=== PATIENT | female | born 1940 | race Caucasian/White ===

== ENCOUNTER → 2019-07-29 | Outpatient (CLI) | payer MEDICARE ==
[~2019-07-29] MED LIST: ALBU90OI61 INH; ATEN25 PO; GABA100 PO; Ipratropium Bro30 ML; LEVSOD100 PO; LOVA40; PANT40 PO; RANI150 PO; TIOT18 INH
[2019-08-01 14:27] LABS: Stool Occult Bld Immuno 1 Positive (NEGATIVE)
== END | disposition home or self-care (01) ==
LOC: OLS 22:30 → LAB SHORT 22:30 → LAB FUT 07-27 08:00
PROVIDERS: Internal Medicine Gastroenterology
DX: D64.9 Anemia, unspecified (principal)
CPT/HCPCS: 82274

== ENCOUNTER → 2019-07-31 | Outpatient (CLI) | payer MEDICARE ==
[2019-08-01 14:27] LABS: Stool Occult Bld Immuno 1 Negative (NEGATIVE)
== END | disposition home or self-care (01) ==
LOC: OLS 16:04 → LAB SHORT 16:04
PROVIDERS: Internal Medicine Gastroenterology
DX: D64.9 Anemia, unspecified (principal)
CPT/HCPCS: 82274

== ENCOUNTER 2019-08-05 13:12 | Day surgery (SDC) | payer MEDICARE ==
[~2019-08-05] VITALS: Ht 154.9 cm; Wt 100.2 kg
== END 2019-08-05 15:09 | disposition home or self-care (01) ==
LOC: ORSCSDS 13:12
PROVIDERS: Internal Medicine Gastroenterology
PROC: 0DB58ZX Excision of Esophagus, Via Natural or Artificial Opening Endoscopic, Diagnostic (ICD-10-PCS; principal; 2019-08-05 14:30)
PROC: 0DB68ZX Excision of Stomach, Via Natural or Artificial Opening Endoscopic, Diagnostic (ICD-10-PCS; principal; 2019-08-05 14:30)
PROC: 0DB98ZX Excision of Duodenum, Via Natural or Artificial Opening Endoscopic, Diagnostic (ICD-10-PCS; principal; 2019-08-05 14:30)
PROC: 0D758ZZ Dilation of Esophagus, Via Natural or Artificial Opening Endoscopic (ICD-10-PCS; principal; 2019-08-05 14:30)
DX: D64.9 Anemia, unspecified (principal); R13.12 Dysphagia, oropharyngeal phase; K22.2 Esophageal obstruction; G47.33 Obstructive sleep apnea (adult) (pediatric); Z80.0 Family history of malignant neoplasm of digestive organs; I10 Essential (primary) hypertension; E03.9 Hypothyroidism, unspecified; E66.01 Morbid (severe) obesity due to excess calories; Z68.41 Body mass index [BMI] 40.0-44.9, adult; Z79.899 Other long term (current) drug therapy; Z87.891 Personal history of nicotine dependence; K44.9 Diaphragmatic hernia without obstruction or gangrene
CPT/HCPCS: 87081; 88305; 88342; J2704; J7120

== ENCOUNTER → 2020-06-09 | Outpatient (CLI) | payer MEDICARE ==
[2020-06-10 09:31] LABS: Stool Occult Bld Immuno 1 Negative (NEGATIVE); Stool Occult Bld Immuno 2 Positive (NEGATIVE)
== END | disposition home or self-care (01) ==
LOC: LAB 02:30 → LAB SHORT 02:30
PROVIDERS: Internal Medicine Gastroenterology
DX: D64.9 Anemia, unspecified (principal)
CPT/HCPCS: 82274

== ENCOUNTER → 2022-09-06 | Outpatient (CLI) | payer OTHER ==
[~2022-09-06] MED LIST changes: +AURYXIA210 MG PO; +EUTHYROX150 MC1 PO; +FURO20 PO; +MELO7.5 PO; +Prinivil10 MG PO; +TRAZ50 PO
[2022-09-07 11:08] LABS: BASOPHILS ABSOLUTE AUTO 0.02 K/mm3 (0.00-0.23); BASOPHILS PERCENT AUTO 0 % (0-2); EOSINOPHILS ABSOLUTE AUTO 0.13 K/mm3 (0.00-0.68); EOSINOPHILS PERCENT AUTO 3 % (0-6); Hematocrit 28.4 % (33.0-51.0); IMMATURE GRAN ABSOLUTE AUTO 0.01 K/mm3 (0.00-0.10); IMMATURE GRAN PERCENT AUTO 0 % (0-1); LYMPHOCYTES ABSOLUTE AUTO 0.57 K/mm3 (0.84-5.20); LYMPHOCYTES PERCENT AUTO 13 % (21-46); MONOCYTES ABSOLUTE AUTO 0.56 K/mm3 (0.16-1.47); MONOCYTES PERCENT AUTO 12 % (4-13); Mean Corpuscular HGB 21.4 pg (26.0-34.0); Mean Corpuscular HGB Conc 28.2 g/dL (31.5-36.5); Mean Corpuscular Volume 76 fL (80-100); NEUTROPHILS ABSOLUTE AUTO 3.21 K/mm3 (1.96-9.15); NEUTROPHILS PERCENT AUTO 71 % (41-73); Platelet Count 153 K/mm3 (150-400); RDW Coefficient Variation 19.8 % (11.7-14.2); RDW Standard Deviation 53.2 fL (35.1-46.3); Red Blood Cell Count 3.73 M/mm3 (3.80-5.20)
[2022-09-07 11:12] LABS: Mean Platelet Volume 11.7 fL (9.1-12.4)
[2022-09-07 12:05] LABS: Albumin, Blood 3.5 g/dL (3.4-5.0); Albumin/Globulin Ratio 0.9 (0.8-1.8); Bilirubin, Total 0.9 mg/dL (0.1-1.0); Bun/Creatinine Ratio 9.7 (12.0-20.0); Calcium, Blood 8.5 mg/dL (8.5-10.1); Creatinine, Blood 0.93 mg/dL (0.40-1.00); Globulin, Blood 3.8 g/dL (2.2-4.0); Potassium, Blood 4.1 mmol/L (3.5-5.5); Total Protein, Blood 7.3 g/dL (6.4-8.2)
== END ==
LOC: LAB SHORT 17:45 → LAB 17:45
PROVIDERS: Physician Assistant
DX: R06.2 Wheezing (principal)
CPT/HCPCS: 80053; 83880; 85025

== ENCOUNTER 2022-09-07 14:15 | Emergency (ER) | payer OTHER ==
[~2022-09-07] VITALS: Ht 152.4 cm; Wt 89.8 kg
[~2022-09-07 14:15] MED LIST changes: -AURYXIA210 MG PO; -EUTHYROX150 MC1 PO; -FURO20 PO; -Prinivil10 MG PO; -TRAZ50 PO
[2022-09-07 14:51] LABS: BASOPHILS ABSOLUTE AUTO 0.01 K/mm3 (0.00-0.23); BASOPHILS PERCENT AUTO 0 % (0-2); EOSINOPHILS ABSOLUTE AUTO 0.15 K/mm3 (0.00-0.68); EOSINOPHILS PERCENT AUTO 5 % (0-6); Hematocrit 27.8 % (33.0-51.0); IMMATURE GRAN PERCENT AUTO 0 % (0-1); LYMPHOCYTES ABSOLUTE AUTO 0.81 K/mm3 (0.84-5.20); LYMPHOCYTES PERCENT AUTO 25 % (21-46); MONOCYTES ABSOLUTE AUTO 0.38 K/mm3 (0.16-1.47); MONOCYTES PERCENT AUTO 12 % (4-13); Mean Corpuscular HGB 21.4 pg (26.0-34.0); Mean Corpuscular HGB Conc 28.8 g/dL (31.5-36.5); Mean Corpuscular Volume 75 fL (80-100); NEUTROPHILS PERCENT AUTO 59 % (41-73); Platelet Count 135 K/mm3 (150-400); RDW Standard Deviation 53.2 fL (35.1-46.3); Red Blood Cell Count 3.73 M/mm3 (3.80-5.20); White Blood Cell Count 3.25 K/mm3 (4.00-11.30)
[2022-09-07 15:02] LABS: Albumin, Blood 3.5 g/dL (3.4-5.0); Albumin/Globulin Ratio 0.9 (0.8-1.8); Bilirubin, Total 0.7 mg/dL (0.1-1.0); Bun/Creatinine Ratio 11.5 (12.0-20.0); Calcium, Blood 8.6 mg/dL (8.5-10.1); Creatinine, Blood 0.96 mg/dL (0.40-1.00); Globulin, Blood 3.7 g/dL (2.2-4.0); Potassium, Blood 3.7 mmol/L (3.5-5.5); Total Protein, Blood 7.2 g/dL (6.4-8.2)
[2022-09-07] MEDS ORDERED: EUTHYROX150 MC1 PO (15:48)
[2022-09-07] MEDS ORDERED: TRAZ50 PO (15:49)
[2022-09-07] MEDS ORDERED: Prinivil10 MG PO (16:32)
[2022-09-07] MEDS ORDERED: FURO20 PO (16:32)
[2022-09-07 16:42] VITALS: BP 158/63
[2022-09-07 16:43] LABS: Percent Saturation 4.7 % (15.0-50.0)
[2022-09-08] MEDS ORDERED: AURYXIA210 MG PO ×2
== END 2022-09-07 16:44 | disposition home or self-care (01) ==
LOC: ER 14:15
PROVIDERS: Emergency Medicine; Student in an Organized Health Care Education/Training Program
DX: I50.9 Heart failure, unspecified (principal); D50.9 Iron deficiency anemia, unspecified; J44.9 Chronic obstructive pulmonary disease, unspecified; Z88.5 Allergy status to narcotic agent; Z79.890 Hormone replacement therapy; Z79.899 Other long term (current) drug therapy; Z87.891 Personal history of nicotine dependence
CPT/HCPCS: 71046; 80053; 82728; 83540; 83550; 83880; 84484; 85025; 93005; 93010; 96374; 99284-25; A9270; J1940

== ENCOUNTER → 2023-08-23 | Outpatient (CLI) | payer MEDICARE ==
[~2023-08-23] MED LIST changes: +AURYXIA210 MG PO; +EUTHYROX150 MC1 PO; +FURO20 PO; +Prinivil10 MG PO; +TRAZ50 PO
[2023-08-23 19:42] LABS: BASOPHILS ABSOLUTE AUTO 0.02 K/mm3 (0.00-0.23); BASOPHILS PERCENT AUTO 0 % (0-2); EOSINOPHILS PERCENT AUTO 2 % (0-6); Hematocrit 41.4 % (33.0-51.0); Hemoglobin 13.9 g/dL (11.5-16.0); IMMATURE GRAN PERCENT AUTO 0 % (0-1); LYMPHOCYTES ABSOLUTE AUTO 0.91 K/mm3 (0.84-5.20); LYMPHOCYTES PERCENT AUTO 18 % (21-46); MONOCYTES ABSOLUTE AUTO 0.67 K/mm3 (0.16-1.47); MONOCYTES PERCENT AUTO 13 % (4-13); Mean Corpuscular HGB Conc 33.6 g/dL (31.5-36.5); Mean Corpuscular Volume 101 fL (80-100); Mean Platelet Volume 11.3 fL (9.1-12.4); NEUTROPHILS ABSOLUTE AUTO 3.47 K/mm3 (1.96-9.15); NEUTROPHILS PERCENT AUTO 67 % (41-73); Platelet Count 160 K/mm3 (150-400); RDW Coefficient Variation 13.5 % (11.7-14.2); RDW Standard Deviation 50.7 fL (35.1-46.3); Red Blood Cell Count 4.09 M/mm3 (3.80-5.20); White Blood Cell Count 5.17 K/mm3 (4.00-11.30)
[2023-08-23 19:49] LABS: Albumin, Blood 3.6 g/dL (3.4-5.0); Albumin/Globulin Ratio 0.9 (0.8-1.8); Bilirubin, Total 0.5 mg/dL (0.1-1.0); Bun/Creatinine Ratio 17.5 (12.0-20.0); Calcium, Blood 9.2 mg/dL (8.5-10.1); Creatinine, Blood 0.92 mg/dL (0.40-1.00); Globulin, Blood 4.2 g/dL (2.2-4.0); Potassium, Blood 4.1 mmol/L (3.5-5.5); Total Protein, Blood 7.8 g/dL (6.4-8.2)
== END | disposition home or self-care (01) ==
LOC: LAB 18:22 → LAB SHORT 18:22
PROVIDERS: Family Medicine
DX: I50.42 Chronic combined systolic (congestive) and diastolic (congestive) heart failure (principal); D64.9 Anemia, unspecified
CPT/HCPCS: 80053; 83880; 85025

== ENCOUNTER → 2024-05-25 | Outpatient (CLI) | payer MEDICARE ==
[2024-05-25 19:41] LABS: Albumin, Blood 3.9 g/dL (3.4-5.0); Bilirubin, Total 0.7 mg/dL (0.1-1.0); Bun/Creatinine Ratio 21.6 (12.0-20.0); Calcium, Blood 9.5 mg/dL (8.5-10.1); Creatinine, Blood 1.34 mg/dL (0.40-1.00); Globulin, Blood 3.9 g/dL (2.2-4.0); Magnesium, Blood 1.9 mg/dL (1.6-2.4); Potassium, Blood 4.9 mmol/L (3.5-5.5); Total Protein, Blood 7.8 g/dL (6.4-8.2)
== END ==
LOC: LAB SHORT 17:25 → LAB 17:25
PROVIDERS: Family Medicine
DX: I50.42 Chronic combined systolic (congestive) and diastolic (congestive) heart failure (principal); Z79.899 Other long term (current) drug therapy
CPT/HCPCS: 80053; 83735

== ENCOUNTER 2024-06-10 00:09 | Inpatient (IN) | payer MEDICARE ==
[2024-06-10] VITALS (16 sets, daily range): BP systolic 98–140; BP diastolic 40–85
[~2024-06-10] VITALS: Ht 154.9 cm; Wt 86.6 kg
[2024-06-10] MEDS ORDERED: FentaNYL Citrate 50 MCG/ML 2 ML Injection IV PRN ×4 (00:20→14:15)
[2024-06-10 01:28] LABS: BASOPHILS ABSOLUTE AUTO 0.03 K/mm3 (0.00-0.23); BASOPHILS PERCENT AUTO 0 % (0-2); EOSINOPHILS ABSOLUTE AUTO 0.05 K/mm3 (0.00-0.68); EOSINOPHILS PERCENT AUTO 1 % (0-6); Hematocrit 38.9 % (33.0-51.0); Hemoglobin 13.2 g/dL (11.5-16.0); IMMATURE GRAN ABSOLUTE AUTO 0.03 K/mm3 (0.00-0.10); IMMATURE GRAN PERCENT AUTO 0 % (0-1); LYMPHOCYTES ABSOLUTE AUTO 1.19 K/mm3 (0.84-5.20); LYMPHOCYTES PERCENT AUTO 12 % (21-46); MONOCYTES ABSOLUTE AUTO 0.83 K/mm3 (0.16-1.47); MONOCYTES PERCENT AUTO 8 % (4-13); Mean Corpuscular HGB 34.1 pg (26.0-34.0); Mean Corpuscular HGB Conc 33.9 g/dL (31.5-36.5); Mean Corpuscular Volume 101 fL (80-100); Mean Platelet Volume 10.5 fL (9.1-12.4); NEUTROPHILS ABSOLUTE AUTO 7.89 K/mm3 (1.96-9.15); NEUTROPHILS PERCENT AUTO 79 % (41-73); NRBC ABSOLUTE 0.02 K/mm3 (0.00-0.02); NRBC Auto 0.2 /100 WBC (0.0-0.2); Platelet Count 153 K/mm3 (150-400); RDW Coefficient Variation 13.3 % (11.7-14.2); RDW Standard Deviation 49.4 fL (35.1-46.3); Red Blood Cell Count 3.87 M/mm3 (3.80-5.20); White Blood Cell Count 10.02 K/mm3 (4.00-11.30)
[2024-06-10 01:36] LABS: International Normalized Ratio 1.02; Prothrombin Time Results 10.9 Sec (9.7-11.5)
[2024-06-10 01:37] LABS: Albumin, Blood 3.5 g/dL (3.4-5.0); Albumin/Globulin Ratio 0.9 (0.8-1.8); Bilirubin, Total 0.4 mg/dL (0.1-1.0); Bun/Creatinine Ratio 21.4 (12.0-20.0); Calcium, Blood 8.3 mg/dL (8.5-10.1); Creatinine, Blood 1.87 mg/dL (0.40-1.00); Globulin, Blood 3.7 g/dL (2.2-4.0); Potassium, Blood 4.1 mmol/L (3.5-5.5); Total Protein, Blood 7.2 g/dL (6.4-8.2)
[2024-06-10] MEDS ORDERED: NS 1,000 ML IV SCH (02:05)
[2024-06-10] MEDS ORDERED: Ondansetron HCl 2 MG / ML 2ML Vial IV PRN ×2 (02:30→14:10)
[2024-06-10] MEDS ORDERED: Naloxone HCl 0.4MG / ML 1ML Vial IV PRN (02:30)
[2024-06-10] MEDS ORDERED: Acetaminophen 325 MG TABLET PO PRN (02:35)
[2024-06-10] MEDS ORDERED: Lactated Ringer's 1,000 ML IV SCH ×3 (03:00→14:05)
--- NOTE | 2024-06-10 07:50 | NUR ---
SHIFT SUMMARY PT HAS BEEN RESTING IN BED OVERNIGHT. PT AOX4, CALM AND COOPERATIVE. C/O EXTREME L HIP PAIN D/T HIP FX. PT ALSO C/O EXTREME NEED TO URINATE. PT WAS BLADDER SCANNED AND STRAIGHT CATHED, WHICH LED TO RELIEF. OTHERWISE, PT HAD NO COMPLAINTS. NO ACUTE EVENTS OVERNIGHT. AWAITING ORTHOPEDIC SX CONSULT.
[2024-06-10] MEDS ORDERED: Docusate Sodium 100 MG Cap PO SCH (09:00)
[2024-06-10] MEDS ORDERED: Atenolol 25 MG Tab PO SCH (09:00)
[2024-06-10] MEDS ORDERED: LORazepam 2 MG/ML 1ML Injection IV PRN (09:15)
[2024-06-10] MEDS ORDERED: ChlordiazePOXIDE 25 MG Cap PO PRN (09:15)
[2024-06-10] MEDS ORDERED: Thiamine HCl 100 MG in NS 50 ML IV SCH (09:30)
[2024-06-10] MEDS ORDERED: Folic Acid 1 MG in NS 50 ML IV SCH (09:30)
--- NOTE | 2024-06-10 09:51 | NUR ---
RECIEVED A CALL FROM DAY SURGERY- PLAN IS FOR PT TO GO FOR A GAMMA HIP TODAY. HOWEVER THE PT EKG IN THE ED SHOWS A FLUTTER. PT HAS NO HISTORY OF THS IRREGULAR HEART RYTHM. SPOKE TO DR TEMPLE AND RECIEVED AN ORDER FOR TELE.
[2024-06-10] MEDS ORDERED: Miconazole Nitrate 2% 85 GM PWD TOP SCH (11:45)
[2024-06-10] MEDS ORDERED: Bupivacaine 0.5% HCl 5 MG/ML 30MLVIAL ONE ×2 (13:42→14:37)
--- NOTE | 2024-06-10 13:45 | NUR ---
TO DAY SURGERY VIA BED
[2024-06-10] MEDS ORDERED: CeFAZolin Sodium 2,000 MG in NS 100 ML IV SCH ×2 (13:50→23:00)
[2024-06-10] MEDS ORDERED: Tranexamic Acid 100 ML IV SCH ×2 (13:50→17:20)
--- NOTE | 2024-06-10 13:59 | NUR ---
PT HAS 20G IV TO LEFT AC THAT FLUSHES WELL AND FLOWS TO GRAVITY.
[2024-06-10] MEDS ORDERED: Lidocaine HCl 1% 5 ML SYR INJ ONE (14:05)
[2024-06-10] MEDS ORDERED: HydrALAZINE HCl 20 MG / ML 1ML Vial IV PRN (14:10)
[2024-06-10] MEDS ORDERED: Albuterol 2.5 MG/3 ML VIAL INH PRN (14:10)
[2024-06-10] MEDS ORDERED: propofoL 150 ML IV ONE (14:55)
[2024-06-10] MEDS ORDERED: propofoL 20 ML IV ONE (14:58)
[2024-06-10] MEDS ORDERED: Albuterol 2.5 MG/3 ML VIAL INH ONE (15:00)
--- NOTE | 2024-06-10 15:18 | NUR ---
PT GLASSES TAKEN TO PACU FOR SAFEKEEPING. OTHER BELONGINGS LEFT IN PERSONAL ROOM ON MEDICAL FLOOR.
[2024-06-10] MEDS ORDERED: Ondansetron HCl 2 MG / ML 2ML Vial ONE (15:27)
[2024-06-10] MEDS ORDERED: Vasopressin 20 UNITS/ML 1ML Vial ONE (15:43)
[2024-06-10] MEDS ORDERED: ePHEDrine Sulfate 50 MG/ML 1ML Injection ONE (16:05)
[2024-06-10] MEDS ORDERED: Phenylephrine HCl 100 MCG/ML-NS 10MLSYR (1MG/10ML) ONE ×2 (16:18)
--- NOTE | 2024-06-10 17:55 | NUR ---
Pt to room 212 post op left hip nailing,A&0 x3, lung sounds clear, vss wnl, left hip aquacel dressings x2 CD&I, denies pain or nausea. call light within reach, denies needs at this time.
[2024-06-10] MEDS ORDERED: OxyCODONE HCL 5 MG TAB PO PRN (19:30)
--- NOTE | 2024-06-10 19:57 | NUR ---
CALL TO HOSPITALIST. PT HAS ALLERY TO OXYCODONE LISTED IN HX. PT HAS ORDERS FOR OXYCODONE FOR PAIN. VERIFIED WITH PT THAT ALLERGY IS ITCHING ONLY WITH OXY. NEW ORDERS RECEIVED FROM HOSPITALIST BENADRYL 25MG PO Q6 PRN.
[2024-06-10] MEDS ORDERED: DiphenhydrAMINE HCL 25 MG Cap PO PRN (20:05)
[2024-06-10] MEDS ORDERED: CeFAZolin Sodium 2,000 MG VIAL ONE (22:36)
--- NOTE | 2024-06-11 01:40 | NUR ---
TRANSFER OF PRIMARY NURSING CARE. REPORT GIVEN TO SIMON Mota RN. PT A/O X4 YET FORGETFUL AT TIMES. PT ABLE TO STAND PIVOT TO BSC FOR VOID. 2 PERSON WITH GB AND FWW. ATTENDS IN PLACE D/T INTERMITTENT BASELINE INCONTINENCE. AQUACEL X2 ON LEFT HIP C/D/I. PT VERBALIZES SIGNIFICANT PAIN, MEDICATED WITH ORAL OXY AND IV FENT. PT VERBALIZED HX OF ITCHING WITH OXY IN THE PAST. PT DENIES ITCHING AND HAS NOT NEEDED PRN BENADRYL. PT VERBALIZED IMPROVEMENT WITH PAIN AFTER ICE APPLIED. CALL LIGHT IN REACH.
--- NOTE | 2024-06-11 02:11 | NUR ---
REPORT TAKEN FROM HARVEY CHRIS TO ASSUME CARE OF PT AT THIS TIME. PT RESTING IN BED, CALL LIGHT WITHIN REACH.
[2024-06-11 04:09] VITALS: BP 108/54
--- NOTE | 2024-06-11 05:30 | NUR ---
SHIFT SUMMARY THIS RN TOOK OVER CARE PART WAY THROUGH THE SHIFT. POD 0 LEFT HIP PINNING. PAIN HAS BEEN MANAGED PER EMAR. PT REPORTING THAT PAIN IMPROVED. SURGICAL SITE WNL. PT IS VOIDING, SURGICAL SITE WNL. PT AMBULATING WITH TWO PERSON ASSIST. POST OP VITALS STABLE. PLAN OF CARE UNCHANGED. BED IN LOWEST POSITION, CALL LIGHT WIHTIN REACH.
[2024-06-11] MEDS ORDERED: Levothyroxine Sodium 0.15 MG Tab PO SCH (06:00)
[2024-06-11] MEDS ORDERED: Pantoprazole Sodium 40 MG Tab PO SCH (06:00)
[2024-06-11 06:18] LABS: Hematocrit 32.3 % (33.0-51.0); Hemoglobin 10.7 g/dL (11.5-16.0); Mean Corpuscular HGB 33.5 pg (26.0-34.0); Mean Corpuscular HGB Conc 33.1 g/dL (31.5-36.5); Mean Corpuscular Volume 101 fL (80-100); Platelet Count 81 K/mm3 (150-400); RDW Coefficient Variation 13.4 % (11.7-14.2); RDW Standard Deviation 50.1 fL (35.1-46.3); Red Blood Cell Count 3.19 M/mm3 (3.80-5.20); White Blood Cell Count 6.61 K/mm3 (4.00-11.30)
[2024-06-11 06:39] LABS: Bun/Creatinine Ratio 20.2 (12.0-20.0); Calcium, Blood 8.3 mg/dL (8.5-10.1); Creatinine, Blood 1.09 mg/dL (0.40-1.00); Magnesium, Blood 1.7 mg/dL (1.6-2.4); Potassium, Blood 4.5 mmol/L (3.5-5.5)
[2024-06-11 07:12] VITALS: BP 112/60
[2024-06-11] MEDS ORDERED: Lisinopril 10 MG Tab PO SCH (09:00)
[2024-06-11] MEDS ORDERED: Furosemide 20 MG Tab PO SCH (09:00)
[2024-06-11] MEDS ORDERED: OxyCODONE 5 mg/Acetamin 325 mg TABLET PO PRN (11:55)
[2024-06-11 15:21] VITALS: BP 103/55
--- NOTE | 2024-06-11 16:51 | NUR ---
SHIFT SUMMARY NO ACUTE CHANGES TODAY. PT WORKED WITH THERAPY AND STILL A 1-2 MOD ASSIST UP TO CHAIR/BSC WITH FWW/GB. 2 PERCOCET FOR PAIN CONTROL. FENTANYL X1 FOR BREAKTHROUGH PAIN. AQUACEL DRESSINGS REMAIN UNCHANGED AND CDI. IV SL. WILLIAM REG DIET. VSS. USES CALL LIGHT APPROPRIATELY. CALL LIGHT WITHIN REACH. PLAN FOR DISCHARGE TO SNF.
[2024-06-11 19:37] VITALS: BP 126/54
[2024-06-11 23:14] VITALS: BP 105/58
--- NOTE | 2024-06-12 03:39 | NUR ---
SHIFT SUMMARY NO ACUTE CHANGES THIS SHIFT. PAIN MANAGED PER EMAR AND ICE THERAPY. AQUACEL X 2 TO LEFT HIP CDI WITH SMALL AMOUNT OF SHADOWING NOTED. ABLE TO GET SELF TO EDGE OF BED WITHOUT ASSISTANCE, REQUIRES 1-2 ASSISTANCE WITH AMBULATION. WILLIAM PO INTAKE, DENIES N/V. IS VOIDING. PLAN TO WORK WITH THERAPY TODAY. PT CURRENTLY RESTING IN BED WITH CALL LIGHT IN REACH. WILL GIVE REPORT TO ONCOMING RN.
[2024-06-12 04:19] VITALS: BP 120/67
[2024-06-12 05:33] LABS: Hematocrit 30.5 % (33.0-51.0); Hemoglobin 10.1 g/dL (11.5-16.0); Mean Corpuscular HGB 33.9 pg (26.0-34.0); Mean Corpuscular HGB Conc 33.1 g/dL (31.5-36.5); Mean Corpuscular Volume 102 fL (80-100); Platelet Count 72 K/mm3 (150-400); RDW Coefficient Variation 13.4 % (11.7-14.2); RDW Standard Deviation 50.3 fL (35.1-46.3); Red Blood Cell Count 2.98 M/mm3 (3.80-5.20)
[2024-06-12 05:52] LABS: Bun/Creatinine Ratio 20.4 (12.0-20.0); Calcium, Blood 8.3 mg/dL (8.5-10.1); Creatinine, Blood 1.13 mg/dL (0.40-1.00); Potassium, Blood 4.5 mmol/L (3.5-5.5)
[2024-06-12 07:21] VITALS: BP 120/55
[2024-06-12] MEDS ORDERED: Apixaban 5 MG Tab PO SCH (09:00)
[2024-06-12] MEDS ORDERED: Folic Acid 1 MG TAB PO ONE (09:55)
[2024-06-12] MEDS ORDERED: Thiamine HCl 100 MG Tab PO ONE (09:55)
[2024-06-12 12:01] VITALS: BP 121/71
--- NOTE | 2024-06-12 12:06 | NUR ---
MORNING NOTE THIS RN ASSUMED CARE AT APPROX 0715. PATIENT ALERT AND ORIENTED X4. COMMUNICATES NEEDS EFFECTIVELY. VSS. TELEMETRY SHOWING AFLUTTER W/ BBB - RATE CONTROLLED 90s-100s. SBP 120s. MAP >65. DENIES CHEST PAIN, PRESSURE. PO ELIQUIS STARTED THIS MORNING. ON ROOM AIR, SATs >90%. DENIES SOB. POD 2 L HIP NAILING. X2 AQUACEL DRESSINGS WITH MINIMAL SEROSANGUINOUS DRAINAGE. REPORTS IMPROVED PAIN CONTROL - MANAGING PER EMAR. UP WITH 1-2P ASSIST FWW GB TO BSC OR CHAIR. CURRENTLY UP IN CHAIR. VOIDING. IV TO LAC LEAKING FOLLOWING IV THIAMINE INFUSION - MD TEMPLE AT BEDSIDE FOR ROUNDING. IV THIAMINE AND FOLIC ACID CHANGED TO PO - ADMINISTERED PER EMAR. NO IV ACCESS OKAY PER MD. PATIENT TO DC TO [facility] THIS AFTERNOON. CALL LIGHT IN REACH.
--- NOTE | 2024-06-12 14:46 | NUR ---
DISCHARGE NOTE NO ACUTE CHANGES SINCE MORNING NOTE. PATIENT REMAINS ALERT AND ORIENTED X4. COMMUNICATING NEEDS EFFECTIVELY. VSS. NO EVENTS REPORTED BY TELEMETRY PRIOR TO REMOVAL. POD 2 L HIP NAILING. PAIN MANAGED PER EMAR. X2 AQUACEL DRESSINGS WNL - NO CHANGES FROM PREVIOUS DOCUMENTATION. UP TO BSC OR CHAIR WITH 1P ASSIST FWW GB. VOIDING. TOLERATING PO INTAKE. TRANSPORT ARRIVED AT APPROX 1430 FOR TRANSFER TO [facility]. REPORT GIVEN TO JENNIFER CHRIS AT FACILITY TO ASSUME CARE
== END 2024-06-12 14:45 | DRG 481 ==
LOC: ER 00:09 → ERHOLD 00:10 → SURS 00:10 → MEDS 00:10 → SURS 16:59
PROVIDERS: Emergency Medicine; Internal Medicine; Orthopaedic Surgery Sports Medicine; ADMIT Student in an Organized Health Care Education/Training Program
PROC: 0QS736Z Reposition Left Upper Femur with Intramedullary Internal Fixation Device, Percutaneous Approach (ICD-10-PCS; principal; 2024-06-10 15:00)
PROC: HZ2ZZZZ Detoxification Services for Substance Abuse Treatment (ICD-10-PCS; 2024-06-12)
DX: S72.142A Displaced intertrochanteric fracture of left femur, initial encounter for closed fracture (principal); I13.0 Hypertensive heart and chronic kidney disease with heart failure and stage 1 through stage 4 chronic kidney disease, or unspecified chronic kidney disease; I48.92 Unspecified atrial flutter; N17.9 Acute kidney failure, unspecified; I50.32 Chronic diastolic (congestive) heart failure; F10.929 Alcohol use, unspecified with intoxication, unspecified; Y90.6 Blood alcohol level of 120-199 mg/100 ml; N18.30 Chronic kidney disease, stage 3 unspecified; J44.9 Chronic obstructive pulmonary disease, unspecified; E03.9 Hypothyroidism, unspecified; G47.33 Obstructive sleep apnea (adult) (pediatric); E86.0 Dehydration; W18.39XA Other fall on same level, initial encounter; E66.9 Obesity, unspecified; Z68.36 Body mass index [BMI] 36.0-36.9, adult; Z88.5 Allergy status to narcotic agent; Z79.890 Hormone replacement therapy; Z87.891 Personal history of nicotine dependence
CPT/HCPCS: 36415; 71045; 73502; 74177; 80048; 80053; 80320; 83735; 84100; 85025; 85027; 85610; 85730; 93005; 93010; 93306; 94760; 94762; 96365; 96366; 96367; 96368; 96375; 96376; 97110; 97112; 97161; 97165; 97530; 99285-25; A9270; C1713; G0378; J0690; J2371; J2405; J2704; J3010; J3411; J7030; J7120; Q9967

== ENCOUNTER → 2024-11-06 | Outpatient (CLI) | payer MEDICARE ==
[2024-11-06 18:29] LABS: BASOPHILS ABSOLUTE AUTO 0.03 K/mm3 (0.00-0.23); BASOPHILS PERCENT AUTO 1 % (0-2); EOSINOPHILS ABSOLUTE AUTO 0.16 K/mm3 (0.00-0.68); EOSINOPHILS PERCENT AUTO 3 % (0-6); Hematocrit 38.4 % (33.0-51.0); Hemoglobin 12.7 g/dL (11.5-16.0); IMMATURE GRAN ABSOLUTE AUTO 0.01 K/mm3 (0.00-0.10); IMMATURE GRAN PERCENT AUTO 0 % (0-1); LYMPHOCYTES ABSOLUTE AUTO 1.04 K/mm3 (0.84-5.20); LYMPHOCYTES PERCENT AUTO 17 % (21-46); MONOCYTES ABSOLUTE AUTO 0.66 K/mm3 (0.16-1.47); MONOCYTES PERCENT AUTO 11 % (4-13); Mean Corpuscular HGB Conc 33.1 g/dL (31.5-36.5); Mean Corpuscular Volume 98 fL (80-100); NEUTROPHILS ABSOLUTE AUTO 4.07 K/mm3 (1.96-9.15); NEUTROPHILS PERCENT AUTO 68 % (41-73); NRBC ABSOLUTE 0.00 K/mm3 (0.00-0.02); NRBC Auto 0.0 /100 WBC (0.0-0.2); Platelet Count 167 K/mm3 (150-400); RDW Coefficient Variation 14.7 % (11.7-14.2); RDW Standard Deviation 53.0 fL (35.1-46.3)
[2024-11-06 18:42] LABS: Alanine Aminotransfer (ALT/SGP 20.0 U/L (12-78); Albumin, Blood 3.2 g/dL (3.4-5.0); Albumin/Globulin Ratio 0.9 (0.8-1.8); Anion Gap 8.0 mmol/L (3-11); Aspartate Aminotrans (AST/SGOT 18.0 U/L (12-37); Bilirubin, Total 0.6 mg/dL (0.1-1.0); Blood Urea Nitrogen 25.0 mg/dL (8-24); CO2, Blood 27.0 mmol/L (21-32); Calcium, Blood 9.2 mg/dL (8.5-10.1); Chloride, Blood 109.0 mmol/L (98-108); Creatinine, Blood 1.16 mg/dL (0.40-1.00); Globulin, Blood 3.6 g/dL (2.2-4.0); Glucose, Blood 113.0 mg/dL (70-99); Potassium, Blood 4.2 mmol/L (3.5-5.5); Sodium, Blood 140.0 mmol/L (136-145); Total Protein, Blood 6.8 g/dL (6.4-8.2)
== END | disposition home or self-care (01) ==
LOC: LAB SHORT 17:02 → LAB 17:02
PROVIDERS: Family Medicine
DX: I50.42 Chronic combined systolic (congestive) and diastolic (congestive) heart failure (principal)
CPT/HCPCS: 80053; 83880; 85025